=== PATIENT | male | born 1985 | race Caucasian/White ===

== ENCOUNTER 2020-01-30 08:56 | Day surgery (SDC) | payer BC ==
[~2020-01-30] VITALS: Ht 177.8 cm; Wt 94.9 kg
[2020-01-30] MEDS ORDERED: LACTATED RINGERS 1,000 ML IV SCH (09:39)
[2020-01-30] MEDS ORDERED: TRAMADOL PO (09:45)
[2020-01-30] MEDS ORDERED: [UNRECOGNIZED DRUG - OTHER] PO (09:45)
[2020-01-30 09:58] VITALS: BP 122/74
[2020-01-30] MEDS ORDERED: CHLORHEXIDINE 15 ML UDC MM ONE (10:00)
[2020-01-30] MEDS ORDERED: MIDAZOLAM 1 MG/ML, 2ML ONE (10:27)
[2020-01-30] MEDS ORDERED: FENTANYL PF 250 MCG/5ML ONE (10:27)
[2020-01-30] MEDS ORDERED: PROMETHAZINE 25 MG/ML, 1ML IVPush PRN (10:30)
[2020-01-30] MEDS ORDERED: HYDROcodone/APAP 7.5-325MG/15ML UDC PO PRN (10:30)
[2020-01-30] MEDS ORDERED: HALOPERIDOL 5 MG/ML IV PRN (10:30)
[2020-01-30] MEDS ORDERED: MEPERIDINE/PF 25MG/0.5ML IVPush PRN (10:30)
[2020-01-30] MEDS ORDERED: LABETALOL 5MG/ML, 20ML IV PRN (10:30)
[2020-01-30] MEDS ORDERED: DIPHENHYDRAMINE 50 MG/ML, 1ML IVPush PRN (10:30)
[2020-01-30] MEDS ORDERED: HYDROmorphone 1 MG/ML, 1ML INJ IVPush PRN (10:30)
[2020-01-30] MEDS ORDERED: hydrALAzine 20 MG/ML, 1ML IV PRN (10:30)
[2020-01-30] MEDS ORDERED: FENTANYL PF 100 MCG/2ML IV PRN (10:30)
[2020-01-30] MEDS ORDERED: VANCOMYCIN 1,000 MG ONE ×2 (11:03→14:18)
[2020-01-30] MEDS ORDERED: LIDOCAINE/PF 0.5% ,50ML ONE (11:03)
[2020-01-30] MEDS ORDERED: BUPIVACAINE/PF 0.25% ONE (11:03)
[2020-01-30] MEDS ORDERED: EPINEPHRINE 1 MG/ML, 1ML ONE (11:03)
[2020-01-30] MEDS ORDERED: DEXMEDETOMIDINE 200 MCG/2 ML ONE (11:22)
[2020-01-30] MEDS ORDERED: KETAMINE 10 MG/ML, 20ML ONE (11:22)
[2020-01-30] MEDS ORDERED: ROCURONIUM 10 MG/ML,10ML ONE (11:39)
[2020-01-30] MEDS ORDERED: KETOROLAC 30 MG/1 ML ONE (14:19)
[2020-01-30] MEDS ORDERED: CEFAZOLIN 1,000 MG ONE (14:25)
[2020-01-30] MEDS ORDERED: GLYCOPYRROLATE 0.2MG/1ML, 5ML ONE (14:25)
[2020-01-30] MEDS ORDERED: DEXAMETHASONE 4 MG/ML, 1ML ONE (14:25)
[2020-01-30] MEDS ORDERED: SUCCINYLCHOLINE 20 MG/ML, 10ML ONE (14:25)
[2020-01-30] MEDS ORDERED: NEOSTIGMINE 1 MG/ML, 10ML ONE (14:25)
[2020-01-30] MEDS ORDERED: PROPOFOL 10 MG/ML, 20ML ONE (14:25)
[2020-01-30] MEDS ORDERED: ONDANSETRON 2MG/ML, 2ML ONE (14:25)
[2020-01-30] MEDS ORDERED: HYDROcodone/APAP 7.5-325MG/15ML UDC ONE (15:04)
== END 2020-01-30 16:45 | disposition home or self-care (01) ==
LOC: OUT 08:56
PROVIDERS: ATTEND Orthopaedic Surgery Orthopaedic Surgery of the Spine
DX: M51.16 Intervertebral disc disorders with radiculopathy, lumbar region (principal); Z20.828 Contact with and (suspected) exposure to other viral communicable diseases; M51.17 Intervertebral disc disorders with radiculopathy, lumbosacral region; Z79.899 Other long term (current) drug therapy; Z88.5 Allergy status to narcotic agent; Z91.040 Latex allergy status; Z91.018 Allergy to other foods; Z98.84 Bariatric surgery status; Z98.890 Other specified postprocedural states
CPT/HCPCS: 63042; 63044; 72100; 87635; 93005; J0171; J0330; J0690; J1100; J1885; J2001; J2250; J2405; J2704; J2710; J3010; J3370; J3490